=== PATIENT | male | born 1950 | race Caucasian/White ===

== ENCOUNTER 2018-08-07 15:31 | Emergency (ER) | payer MEDICARE, BC ==
[~2018-08-07] VITALS: Ht 180.3 cm; Wt 109.1 kg
[2018-08-07 15:57] VITALS: Ht 180.3 cm; Wt 109.1 kg
[2018-08-07] MEDS ORDERED: GLUCOPHAGE500 MG PO (15:59)
[2018-08-07] MEDS ORDERED: PRINIVIL20 MG PO (15:59)
[2018-08-07] MEDS ORDERED: MAG 6464 MG PO (15:59)
[2018-08-07] MEDS ORDERED: VITAMIN B-1250 MCG PO (16:00)
[2018-08-07] MEDS ORDERED: OMEPRAZOLE20 M1 PO (16:00)
[2018-08-07 17:31] LABS: BASOPHILS 0.2 % (0-2); EOSINOPHILS 1.3 % (0-7); HEMATOCRIT 40.9 % (42.0-54.0); HEMOGLOBIN 13.6 g/dL (13.5-17.5); IMMATURE GRANULOCYTES 0.2 % (0-5); LYMPHOCYTES 19.9 % (15-50); MCH 30.9 pg (26.0-34.0); MCHC 33.3 g/dL (31.0-37.0); MEAN PLATELET VOLUME 9.8 fL (7.4-10.4); MONOCYTES 12.6 % (2-11); NEUTROPHILS 65.8 % (40-80); PLATELET COUNT 122 10x3/uL (130-400); RDW 13.7 % (11.5-14.5); WBC 4.5 10x3/uL (4.8-10.8)
[2018-08-07 17:59] LABS: ALBUMIN 3.3 g/dL (3.4-5.0); ANION GAP 13.5 mmol/L (8-16); BILIRUBIN - TOTAL 0.42 mg/dL (0.2-1.3); CALCIUM 8.4 mg/dL (8.5-10.1); CARBON DIOXIDE 28.9 mmol/L (21.0-32.0); CREATININE - SERUM 1.1 mg/dL (0.6-1.3); POTASSIUM - SERUM 3.4 mmol/L (3.5-5.1); PROTEIN - SERUM 7.4 g/dL (6.4-8.2)
[2018-08-07] MEDS ORDERED: LEVOFLOXACIN500 MG PO ×2 (18:15→18:19)
[2018-08-07] MEDS ORDERED: TYLENOL W/CODEI1 TAB PO (18:18)
[2018-08-07 19:13] VITALS: BP 114/60
== END 2018-08-07 19:16 | disposition home or self-care (01) ==
LOC: D.ER 15:31
PROVIDERS: Emergency Medicine
DX: J18.9 Pneumonia, unspecified organism (principal); R50.9 Fever, unspecified; R07.81 Pleurodynia